=== PATIENT | male | born 1990 | race African-American/Black ===

== ENCOUNTER 2018-05-20 13:56 | Emergency (ER) | payer MEDICAID ==
[~2018-05-20] VITALS: Ht 175.3 cm; Wt 72.7 kg
[2018-05-20 13:59] VITALS: Ht 175.3 cm; Wt 72.7 kg
[2018-05-20 14:51] LABS: BASOPHILS 0.4 % (0-2); EOSINOPHILS 1.2 % (0-7); HEMATOCRIT 40.6 % (42.0-54.0); HEMOGLOBIN 13.5 g/dL (13.5-17.5); IMMATURE GRANULOCYTES 0.2 % (0-5); LYMPHOCYTES 29.6 % (15-50); MCHC 33.3 g/dL (31.0-37.0); MCV 87.1 fL (80.0-100.0); MEAN PLATELET VOLUME 10.7 fL (7.4-10.4); MONOCYTES 5.3 % (2-11); NEUTROPHILS 63.3 % (40-80); PLATELET COUNT 235 10x3/uL (130-400); RBC 4.66 10x6/uL (4.20-6.10); RDW 14.1 % (11.5-14.5); WBC 8.3 10x3/uL (4.8-10.8)
[2018-05-20 14:57] LABS: ALBUMIN 3.5 g/dL (3.4-5.0); ALKALINE PHOSPHATASE 64 U/L (46-116); ALT (SGPT) 15 U/L (10-68); AMYLASE - SERUM 46 U/L (25-115); CALC OSMOLALITY 275 mosm/kg (275-300); CALCIUM 9.3 mg/dL (8.5-10.1); CHLORIDE - SERUM 104 mmol/L (98-107); CREATININE - SERUM 0.7 mg/dL (0.6-1.3); GLUCOSE 102 mg/dL (74-106); LIPASE 82 U/L (73-393); POTASSIUM - SERUM 4.4 mmol/L (3.5-5.1); PROTEIN - SERUM 7.8 g/dL (6.4-8.2); SODIUM 139 mmol/L (136-145); UREA NITROGEN 8 mg/dL (7-18); eGFR NON AFRICAN AMERICAN > 90 mL/min (90-120)
[2018-05-20] MEDS ORDERED: ZOFRAN ODT4 MG/UDTAB PO (15:06)
[2018-05-20] MEDS ORDERED: IMODIUM2 MG PO (15:06)
== END 2018-05-20 15:17 | disposition home or self-care (01) ==
LOC: D.ER 13:56
PROVIDERS: Emergency Medicine
DX: A05.9 Bacterial foodborne intoxication, unspecified (principal); R19.7 Diarrhea, unspecified; F17.200 Nicotine dependence, unspecified, uncomplicated

== ENCOUNTER 2019-08-10 04:44 | Emergency (ER) | payer MEDICAID ==
[~2019-08-10] VITALS: Ht 175.3 cm; Wt 77.3 kg
[~2019-08-10 04:44] MED LIST: IMODIUM2 MG PO; ZOFRAN ODT4 MG/UDTAB PO
[2019-08-10 04:46] VITALS: Ht 175.3 cm; Wt 77.3 kg
[2019-08-10 07:31] LABS: CALC OSMOLALITY 281 mosm/kg (275-300); CALCIUM 8.7 mg/dL (8.5-10.1); CARBON DIOXIDE 24.5 mmol/L (21.0-32.0); CHLORIDE - SERUM 104 mmol/L (98-107); CREATININE - SERUM 1.1 mg/dL (0.6-1.3); GLUCOSE 94 mg/dL (74-106); POTASSIUM - SERUM 3.8 mmol/L (3.5-5.1); SODIUM 142 mmol/L (136-145); UREA NITROGEN 10 mg/dL (7-18); eGFR NON AFRICAN AMERICAN 85 mL/min (90-120)
[2019-08-10 07:34] LABS: BASOPHILS 0.2 % (0-2); EOSINOPHILS 0.5 % (0-7); HEMOGLOBIN 16.6 g/dL (13.5-17.5); IMMATURE GRANULOCYTES 0.2 % (0-5); LYMPHOCYTES 31.3 % (15-50); MCH 31.3 pg (26.0-34.0); MCHC 36.1 g/dL (31.0-37.0); MCV 86.6 fL (80.0-100.0); MEAN PLATELET VOLUME 10.3 fL (7.4-10.4); NEUTROPHILS 58.8 % (40-80); PLATELET COUNT 245 10x3/uL (130-400); RBC 5.31 10x6/uL (4.20-6.10); RDW 12.3 % (11.5-14.5); WBC 8.8 10x3/uL (4.8-10.8)
[2019-08-10 07:47] LABS: ALBUMIN 4.2 g/dL (3.4-5.0); ALKALINE PHOSPHATASE 68 U/L (46-116); ALT (SGPT) 58 U/L (10-68); BILIRUBIN - TOTAL 1.02 mg/dL (0.2-1.3); LIPASE 158 U/L (73-393); PROTEIN - SERUM 8.6 g/dL (6.4-8.2)
[2019-08-10 09:46] VITALS: BP 118/70
== END 2019-08-10 12:46 | disposition home or self-care (01) ==
LOC: D.ER 04:44
PROVIDERS: Family Medicine
DX: S00.81XA Abrasion of other part of head, initial encounter (principal); V89.2XXA Person injured in unspecified motor-vehicle accident, traffic, initial encounter; Y93.9 Activity, unspecified; Y92.9 Unspecified place or not applicable; R41.82 Altered mental status, unspecified; F10.129 Alcohol abuse with intoxication, unspecified; Y90.8 Blood alcohol level of 240 mg/100 ml or more